=== PATIENT | female | born 1950 | race Caucasian/White ===

== ENCOUNTER 2018-11-21 06:38 | Day surgery (SDC) | payer BC, MEDICARE ==
[2018-11-21] MEDS ORDERED: Dextrose 5%-Lactated Ringers 1,000 ML IV SCH (07:15)
[2018-11-21] MEDS ORDERED: Midazolam 1 MG/ML 2 ML SDV ONE (07:27)
[2018-11-21] MEDS ORDERED: fentaNYL 100 MCG/2 ML SDV ONE (07:27)
[2018-11-21] MEDS ORDERED: Propofol 200 MG/20 ML SDV ONE (07:27)
[2018-11-21] MEDS ORDERED: Glycopyrrolate 0.2 MG/ML 2 ML SDV IVPUSH ONE (07:45)
--- NOTE | 2018-11-25 13:46 | OR ---
DATE OF PROCEDURE: 11/21/2018 PREOPERATIVE DIAGNOSIS: Indications for screening colonoscopy. POSTOPERATIVE DIAGNOSES: 1. Single small polyp at hepatic flexure colon. 2. Minimal left colonic diverticulosis. OPERATIVE PROCEDURE: Flexible colonoscopy with polypectomy by snare technique ([id number]). ANESTHESIA: IV sedation. LINTER TENDER: Mitch Burk MS-3. INDICATIONS FOR PROCEDURE: This is a 68-year-old presenting for followup colonoscopy. Plan is to proceed with a colonoscopy with biopsies and/or polypectomy as indicated. Potential risks including bleeding and perforation were discussed, and the patient wishes to proceed. DETAILS OF PROCEDURE: The patient was taken to the operating room and placed in the left lateral decubitus position. IV sedation was administered, after which the initial digital rectal exam was performed and was unremarkable. Colonoscope was then passed into the rectum with retroflexion revealing uncomplicated hemorrhoidal columns. The scope was eventually passed to the cecum. The prep was fairly good with only a small amount of liquid stool present. On the left colon, there were a very few scattered uncomplicated diverticula. In the hepatic flexure of the colon, there was a small roughly 2-3 mm polyp. This was the only additional pathology seen. Otherwise, there were no additional polyps or areas of colitis. This polyp was encircled at its base and removed by means of a cautery snare and then aspirated and sent for histologic evaluation. Good hemostasis was confirmed at the polypectomy site. The scope was withdrawn and no additional abnormalities were noted. The procedure was then concluded. The patient was taken to the recovery room in satisfactory condition. We will await the pathology. Assuming this is an adenomatous polyp, her next colonoscopy should probably be in roughly 2 years. Lazaro Best MD /[id number]
== END 2018-11-21 09:35 | disposition home or self-care (01) ==
LOC: JP.SDS 06:38
PROVIDERS: ATTEND Surgery
DX: Z12.11 Encounter for screening for malignant neoplasm of colon (principal); K63.5 Polyp of colon; K57.30 Diverticulosis of large intestine without perforation or abscess without bleeding; E78.00 Pure hypercholesterolemia, unspecified
CPT/HCPCS: 45385; J2250; J2704; J3010; J7042; 88305

== ENCOUNTER 2020-11-22 09:16 | Day surgery (SDC) | payer MEDICARE ==
[2020-11-22] MEDS ORDERED: Midazolam 1 MG/ML 2 ML SDV ONE (09:37)
[2020-11-22] MEDS ORDERED: Propofol 200 MG/20 ML SDV ONE (09:37)
[2020-11-22] MEDS ORDERED: fentaNYL 100 MCG/2 ML SDV ONE (09:37)
[2020-11-22] MEDS ORDERED: Dextrose 5%-Lactated Ringers 1,000 ML IV SCH (09:45)
--- NOTE | 2020-12-06 13:00 | OR ---
DATE OF PROCEDURE: 11/23/2020 SURGEON: Lazaro Best MD PREOPERATIVE DIAGNOSIS: History of colon polyps. POSTOPERATIVE DIAGNOSES: 1. Left colonic diverticulosis. 2. No recurrent polyps. OPERATIVE PROCEDURE: Flexible colonoscopy. ANESTHESIA: IV sedation. INDICATIONS FOR PROCEDURE: This is a 70-year-old female, presenting for a screening colonoscopy. She has also had history of previous colon polyps. Plan is to proceed with a colonoscopy with biopsies and/or polypectomy as indicated. Potential risks including bleeding and perforation were discussed, and the patient wishes to proceed. DETAILS OF PROCEDURE: The patient was taken to the operating room, placed in a left lateral decubitus position. IV sedation was administered, after which the initial digital rectal exam was performed and was unremarkable. Colonoscope was passed into the rectum with retroflexion revealing uncomplicated hemorrhoidal columns. Scope was eventually passed to the level of the cecum. The prep was quite good, only small liquid stool was present. To that level, the patient had some uncomplicated left colonic diverticulosis. No areas of colitis and no recurrent polyps or other signs of neoplasia were identified. Scope was then withdrawn and the above findings reconfirmed, and the procedure was then concluded. Recommendation would be to repeat the colonoscopy in 5 years. Lazaro Best MD /[id number]
== END 2020-11-22 12:47 | disposition home or self-care (01) ==
LOC: JP.SDS 09:16
PROVIDERS: ATTEND Surgery
DX: Z12.11 Encounter for screening for malignant neoplasm of colon (principal); K57.30 Diverticulosis of large intestine without perforation or abscess without bleeding; K64.9 Unspecified hemorrhoids; E66.9 Obesity, unspecified; Z86.010 Personal history of colon polyps
CPT/HCPCS: G0105; J2250; J2704; J3010; J7121